=== PATIENT | female | born 1980 | race Caucasian/White ===

== ENCOUNTER 2017-08-13 03:54 | Emergency (ER) | payer MEDICARE, MEDICAID ==
[~2017-08-13] VITALS: Ht 154.9 cm; Wt 60.5 kg
[~2017-08-13 03:54] MED LIST: AMOX-421 PO; CINA30 PO; LORA1TAB PO; NEPVIT PO; OMEP20TA2 PO; REN800 PO; SERT25TA74 PO
[2017-08-13 04:37] VITALS: BP 165/83
[2017-08-13] MEDS ORDERED: GUAIFENESIN/CODEINE 200-20MG/10ML UDC PO ONE (04:45)
[2017-08-13] MEDS ORDERED: AZITHROMYCIN 250 MG TABLET PO ONE (04:45)
== END 2017-08-13 06:20 | disposition home or self-care (01) ==
LOC: ER 04:57
DX: J40 Bronchitis, not specified as acute or chronic (principal); N28.9 Disorder of kidney and ureter, unspecified; Z88.1 Allergy status to other antibiotic agents; Z94.0 Kidney transplant status; Z99.2 Dependence on renal dialysis
CPT/HCPCS: 99283

== ENCOUNTER 2017-08-17 20:53 | Emergency (ER) | payer MEDICARE, MEDICAID ==
[~2017-08-17] VITALS: Ht 152.4 cm; Wt 59.5 kg
[2017-08-18] MEDS ORDERED: TETRACAINE/BENZOCAINE/BUTAMBEN 20 GM SPRAY MM NR (00:30)
[2017-08-18] MEDS ORDERED: TETRACAINE 0.5% OPHTH DROPS 4ML BOTHEYE ONE (01:30)
[2017-08-18] MEDS ORDERED: TRAMADOL 50MG TABLET PO ONE (02:00)
[2017-08-18 02:06] VITALS: BP 142/76
== END 2017-08-18 02:06 | disposition home or self-care (01) ==
LOC: ER 21:28
DX: H11.33 Conjunctival hemorrhage, bilateral (principal); R03.0 Elevated blood-pressure reading, without diagnosis of hypertension; N18.6 End stage renal disease; Z99.2 Dependence on renal dialysis; Z79.899 Other long term (current) drug therapy
CPT/HCPCS: 99283

== ENCOUNTER → 2017-10-30 | Outpatient (CLI) | payer MEDICARE, MEDICAID | END | disposition home or self-care (01) | LOC: RAD 16:50 | PROVIDERS: ATTEND Specialist | DX: J98.11 Atelectasis (principal); J90 Pleural effusion, not elsewhere classified | CPT/HCPCS: 71020 ==

== ENCOUNTER → 2018-03-07 | Outpatient (CLI) | payer MEDICARE, MEDICAID ==
[~2018-03-07] MED LIST changes: -AMOX-421 PO; +ATEN50TA PO; +GLYC10.7 IH; +MELA1TAB21 PO; +MULT1TAB63 PO; +TRAM1TAB PO
== END | disposition home or self-care (01) ==
LOC: CT 09:32
PROVIDERS: ATTEND Internal Medicine Critical Care Medicine
DX: N26.1 Atrophy of kidney (terminal) (principal); J86.9 Pyothorax without fistula; I51.7 Cardiomegaly; J90 Pleural effusion, not elsewhere classified; J92.9 Pleural plaque without asbestos; R91.8 Other nonspecific abnormal finding of lung field; R59.0 Localized enlarged lymph nodes; R16.1 Splenomegaly, not elsewhere classified
CPT/HCPCS: 71250

== ENCOUNTER 2018-03-09 13:33 | Inpatient (IN) | payer MEDICARE, MEDICAID ==
[~2018-03-09] VITALS: Ht 152.4 cm; Wt 56.7 kg
[~2018-03-09 13:33] MED LIST changes: -ATEN50TA PO; -GLYC10.7 IH; -MELA1TAB21 PO; -MULT1TAB63 PO; -TRAM1TAB PO
[2018-03-09 14:57] LABS: BASOPHILS % 1.1 % (0.0-2.0); EOSINOPHILS % 0.8 % (0.0-5.0); HEMATOCRIT. 28.2 % (36.0-48.0); HEMOGLOBIN. 9.2 g/dL (12.0-16.0); LYMPHOCYTES % 17.1 % (20.0-50.0); MEAN CORPUSCULAR VOLUME 91.7 fL (81.0-99.0); MEAN PLATELET VOLUME 9.5 fl (7.4-10.4); MONOCYTES % 7.7 % (2.0-8.0); NEUTROPHILS % 73.3 % (40.0-76.0); PLATELET 332 x1000/uL (130-400); RED BLOOD CELL COUNT 3.08 mill/uL (4.2-5.4); RED CELL DISTRIBUTION WIDTH 17.5 % (11.6-14.6)
[2018-03-09 15:00] LABS: CHLORIDE 98 mEq/L (98-107)
[2018-03-09 15:12] LABS: D-DIMER 3.97 mg/L FEU (<0.50); INR 1.2; PARTIAL THROMBOPLASTIN TIME 28.6 sec (23.4-31.0); PROTHROMBIN TIME 12.5 sec (9.4-11.6)
[2018-03-09] MEDS ORDERED: ONDANSETRON HCL 4MG/2ML VIAL IV STA (17:31)
[2018-03-09] MEDS ORDERED: MORPHINE SULFATE 4 MG/ML CPJ (NOT FOR IM USE) IV STA (17:31)
[2018-03-09] MEDS ORDERED: METHYLPREDNISOLONE SOD SUCC 125 MG/2 ML VIAL IV STA (17:31)
[2018-03-09] MEDS ORDERED: KETOROLAC 30MG/ML VIAL IV STA (17:31)
[2018-03-09] MEDS ORDERED: IPRATROPIUM/ALBUTEROL 0.5-3(2.5)MG/3ML NEB HHN ONE (17:45)
[2018-03-09] MEDS ORDERED: AZITHROMYCIN 500 MG in DEXT 5% WATER 250 ML IV SCH (17:45)
[2018-03-09 18:26] LABS: INR 1.2; PARTIAL THROMBOPLASTIN TIME 28.8 sec (23.4-31.0); PROTHROMBIN TIME 12.6 sec (9.4-11.6)
[2018-03-09 19:48] LABS: HCG SCREEN NEGATIVE
[2018-03-09] MEDS ORDERED: TRAMADOL 50MG TABLET PO PRN (21:45)
[2018-03-09] MEDS ORDERED: ENOXAPARIN 40MG/0.4ML SYR SUBCUT SCH (21:45)
[2018-03-10 00:40] VITALS: BP 121/63
[2018-03-10] MEDS ORDERED: NITROGLYCERIN 0.4MG TABLET SL SL PRN (01:03)
[2018-03-10] MEDS ORDERED: ZOLPIDEM TARTRATE 5MG TABLET PO PRN (01:06)
[2018-03-10] MEDS ORDERED: ACETAMINOPHEN 325MG TABLET PO PRN (01:07)
[2018-03-10] MEDS ORDERED: MAGNESIUM/ALUMINUM HYDROXIDE/SIMETHICONE 30ML UDC PO PRN (01:07)
[2018-03-10] MEDS ORDERED: ONDANSETRON HCL 4MG/2ML VIAL IV PRN (01:07)
[2018-03-10] MEDS ORDERED: NA PHOS,M-B/NA PHOS,DI-BA ENEMA 118ML PR PRN (01:07)
[2018-03-10] MEDS ORDERED: CLONIDINE 0.1MG TABLET PO PRN (01:07)
[2018-03-10] MEDS ORDERED: DIPHENHYDRAMINE 50MG/ML VIAL IV PRN (01:08)
[2018-03-10] MEDS ORDERED: LORAZEPAM 0.5MG TABLET PO PRN (01:08)
[2018-03-10] MEDS ORDERED: GUAIFENESIN 200MG/10ML SUGAR FREE UDC PO PRN (01:08)
[2018-03-10] MEDS ORDERED: DOCUSATE SODIUM 100MG CAPSULE PO PRN (01:08)
[2018-03-10] MEDS ORDERED: IPRATROPIUM/ALBUTEROL 0.5-3(2.5)MG/3ML NEB INH PRN (01:08)
[2018-03-10 01:30] LABS: CREATINE KINASE 20 IU/L (26-192)
[2018-03-10 01:31] LABS: CREATINE KINASE MB FRACTION < 0.5 ng/mL (0.5-3.6)
[2018-03-10 04:00] VITALS: BP 121/68
[2018-03-10] MEDS ORDERED: TRAM1TAB PO (06:03)
[2018-03-10] MEDS ORDERED: MELA1TAB21 PO (06:03)
[2018-03-10] MEDS ORDERED: ATEN50TA PO (06:03)
[2018-03-10] MEDS ORDERED: MULT1TAB63 PO (06:03)
[2018-03-10] MEDS ORDERED: GLYC10.7 IH (06:04)
[2018-03-10 08:00] VITALS: BP 126/63
[2018-03-10 08:08] LABS: CREATINE KINASE 17 IU/L (26-192)
[2018-03-10 08:09] LABS: CREATINE KINASE MB FRACTION < 0.5 ng/mL (0.5-3.6)
[2018-03-10] MEDS: GUAIFENESIN/DM 600MG/30MG ER TAB 12HR PO SCH ×2 (08:12→21:34)
[2018-03-10] MEDS: FOLIC ACID/VITAMIN B COMP W-C TABLET PO SCH (08:12)
[2018-03-10] MEDS: FAMOTIDINE 20MG TABLET PO SCH (08:12)
[2018-03-10] MEDS: SEVELAMER CARBONATE 800 MG TABLET PO SCH ×3 (08:13→17:40)
[2018-03-10] MEDS: ENOXAPARIN 30MG/0.3ML SYR SUBCUT SCH (08:13)
[2018-03-10] MEDS ORDERED: FAMOTIDINE 20MG TABLET PO SCH (09:00)
[2018-03-10 12:00] VITALS: BP 120/66
[2018-03-10 16:00] VITALS: BP 119/64
[2018-03-10 20:00] VITALS: BP 114/62
[2018-03-10] MEDS: MORPHINE SULFATE 4 MG/ML CPJ (NOT FOR IM USE) IV PRN (22:28)
[2018-03-11] VITALS: BP 127/69
[2018-03-11 04:00] VITALS: BP 122/68
[2018-03-11 08:00] VITALS: BP 123/60
[2018-03-11] MEDS: FAMOTIDINE 20MG TABLET PO SCH (08:28)
[2018-03-11] MEDS: SEVELAMER CARBONATE 800 MG TABLET PO SCH ×3 (08:28→17:30)
[2018-03-11] MEDS: GUAIFENESIN/DM 600MG/30MG ER TAB 12HR PO SCH ×2 (08:28→21:38)
[2018-03-11] MEDS: FOLIC ACID/VITAMIN B COMP W-C TABLET PO SCH (08:28)
[2018-03-11] MEDS: ENOXAPARIN 30MG/0.3ML SYR SUBCUT SCH (08:29)
[2018-03-11 12:00] VITALS: BP 132/65
[2018-03-11 16:00] VITALS: BP 142/69
[2018-03-11] MEDS: MORPHINE SULFATE 4 MG/ML CPJ (NOT FOR IM USE) IV PRN (16:08)
[2018-03-11 20:00] VITALS: BP 136/66
[2018-03-12] VITALS: BP 146/57
[2018-03-12 04:00] VITALS: BP 157/71
[2018-03-12 08:00] VITALS: BP 150/68
[2018-03-12 08:10] LABS: BASOPHILS % 1.4 % (0.0-2.0); EOSINOPHILS % 1.3 % (0.0-5.0); HEMATOCRIT. 28.2 % (36.0-48.0); HEMOGLOBIN. 9.1 g/dL (12.0-16.0); LYMPHOCYTES % 23.1 % (20.0-50.0); MEAN CORPUSCULAR HEMOGLOBIN 29.5 pg (28.0-32.0); MEAN CORPUSCULAR VOLUME 91.9 fL (81.0-99.0); MEAN PLATELET VOLUME 10.3 fl (7.4-10.4); MONOCYTES % 7.6 % (2.0-8.0); NEUTROPHILS % 66.6 % (40.0-76.0); PLATELET 329 x1000/uL (130-400); RED BLOOD CELL COUNT 3.07 mill/uL (4.2-5.4); RED CELL DISTRIBUTION WIDTH 18.3 % (11.6-14.6)
[2018-03-12 08:21] LABS: CHLORIDE 102 mEq/L (98-107)
[2018-03-12] MEDS: ENOXAPARIN 30MG/0.3ML SYR SUBCUT SCH (08:31)
[2018-03-12] MEDS: FOLIC ACID/VITAMIN B COMP W-C TABLET PO SCH (08:32)
[2018-03-12] MEDS: FAMOTIDINE 20MG TABLET PO SCH (08:32)
[2018-03-12] MEDS: SEVELAMER CARBONATE 800 MG TABLET PO SCH (08:32)
[2018-03-12] MEDS: GUAIFENESIN/DM 600MG/30MG ER TAB 12HR PO SCH (08:32)
[2018-03-12 12:00] VITALS: BP 148/80
[2018-03-12 12:45] VITALS: BP 148/80
== END 2018-03-12 13:45 | disposition home or self-care (01) | DRG 291 ==
LOC: ER 13:52 → EDBEDREQ 21:28 → SUPCPDRO 21:37 → ENRESERV 22:31 → 8WST 03-10 00:27
PROVIDERS: ADMIT Internal Medicine; ATTEND Internal Medicine
DX: I13.2 Hypertensive heart and chronic kidney disease with heart failure and with stage 5 chronic kidney disease, or end stage renal disease (principal); I50.33 Acute on chronic diastolic (congestive) heart failure; N18.6 End stage renal disease; E44.1 Mild protein-calorie malnutrition; D64.9 Anemia, unspecified; Z99.2 Dependence on renal dialysis; Z88.1 Allergy status to other antibiotic agents; Z79.899 Other long term (current) drug therapy; Z68.24 Body mass index [BMI] 24.0-24.9, adult; Z82.49 Family history of ischemic heart disease and other diseases of the circulatory system
CPT/HCPCS: 36415; 71045; 71250; 76700; 80053; 80061; 82550; 82553; 83036; 83605; 83880; 84443; 84484; 84703; 85025; 85379; 85610; 85730; 87040; 93005; 93970; 94640; 96374; 96375; 99285; J0456; J1650; J1885; J2270; J2405; J2930; J7060; J7620

== ENCOUNTER 2018-11-19 22:21 | Emergency (ER) | payer MEDICARE, MEDICAID ==
[~2018-11-19] VITALS: Ht 152.4 cm; Wt 63.0 kg
[~2018-11-19 22:21] MED LIST changes: +ATEN50TA PO; +GLYC10.7 IH; +MELA1TAB21 PO; +MULT1TAB63 PO; +TRAM-529 PO
[2018-11-20 04:48] LABS: EOSINOPHILS % 0.7 % (0.0-5.0); HEMATOCRIT. 33.5 % (36.0-48.0); HEMOGLOBIN. 11.2 g/dL (12.0-16.0); MEAN CORPUSCULAR HEMOGLOBIN 33.6 pg (28.0-32.0); MEAN CORPUSCULAR VOLUME 100.6 fL (81.0-99.0); MEAN PLATELET VOLUME 10.8 fl (7.4-10.4); MONOCYTES % 8.1 % (2.0-8.0); NEUTROPHILS % 68.2 % (40.0-76.0); PLATELET 165 x1000/uL (130-400); RED BLOOD CELL COUNT 3.33 mill/uL (4.2-5.4); RED CELL DISTRIBUTION WIDTH 14.7 % (11.6-14.6)
[2018-11-20] MEDS ORDERED: HYDROCODONE/ACETAMINOPHEN 5/325MG TABLET PO ONE (05:45)
[2018-11-20] MEDS ORDERED: IBUPROFEN 400MG TABLET PO ONE (05:45)
[2018-11-20] MEDS ORDERED: SODIUM POLYSTYRENE SULFONATE 15 G/60 ML BOT PO ONE (05:45)
[2018-11-20 05:56] VITALS: BP 126/64
== END 2018-11-20 08:26 | disposition home or self-care (01) ==
LOC: ER 11-20 08:26
DX: L01.00 Impetigo, unspecified (principal); N18.6 End stage renal disease; Z99.2 Dependence on renal dialysis
CPT/HCPCS: 36415; 80048; 99284